=== PATIENT | female | born 1990 | race Caucasian/White ===

== ENCOUNTER 2017-12-18 19:43 | Emergency (ER) | payer OTHER ==
[~2017-12-18] VITALS: Ht 162.6 cm; Wt 94.3 kg
[~2017-12-18 19:43] MED LIST: FLEXERIL10 MG PO; MOTRIN800 MG PO; ZOFRAN ODT4 MG PO
[2017-12-18 22:42] VITALS: BP 156/86
== END 2017-12-18 22:50 | disposition home or self-care (01) ==
LOC: EXP 19:43 → EME 19:43 → EXP 22:50
DX: S01.01XA Laceration without foreign body of scalp, initial encounter (principal); S16.1XXA Strain of muscle, fascia and tendon at neck level, initial encounter; W22.8XXA Striking against or struck by other objects, initial encounter; Y99.0 Civilian activity done for income or pay; Z23 Encounter for immunization; Z88.2 Allergy status to sulfonamides; Z88.0 Allergy status to penicillin; F17.200 Nicotine dependence, unspecified, uncomplicated
CPT/HCPCS: 99281; 99283